=== PATIENT | male | born 1930 | race Caucasian/White ===

== ENCOUNTER → 2018-01-16 12:39 | Outpatient (CLI) | payer MEDICARE ==
[2015-02-10 17:05] VITALS: BMI 31.6
[~2018-01-16 12:39] MED LIST: BAYER CHEWABLE81 MG PO; FLOMAX0.4 MG PO; NORVASC5 MG PO; SYNTHROID75 MCG PO; TOPROL XL25 MG PO; VYTORIN 10-40 M1 TAB PO
[2018-01-16 13:33] LABS: CREATININE - SERUM 1.3 mg/dL (0.6-1.3)
== END | disposition home or self-care (01) ==
LOC: D.CT 12:39
PROVIDERS: Nurse Practitioner Family
DX: I73.9 Peripheral vascular disease, unspecified (principal)